=== PATIENT | female | born 1930 | race Caucasian/White ===

== ENCOUNTER 2017-07-29 10:20 | Day surgery (SDC) | payer MEDICARE, OTHER ==
[~2017-07-29 10:20] MED LIST: ACETAMINOPHEN 325 MG TAB PO; MIDAZOLAM INJ 2 MG/2 ML VIAL (J2250) As Ordered; PHENYLEPHRINE HCL 10 % OPHTH. SOL 5ML OD; fentaNYL 100 MCG/2 ML INJECTION (J3010) As Ordered
[2017-07-29] MEDS ORDERED: LIDOCAINE 1% MDV 20ML VIAL SQ (10:30)
[2017-07-29] MEDS: PHENYLEPHRINE 2.5% OPHTH SOL 2ML OD (11:54)
[2017-07-29] MEDS: TROPICAMIDE 1% OPHTH SOLN 2ML OD (11:54)
[2017-07-29] MEDS: OFLOXACIN 0.3 % (OCUFLOX) OPTH SOL 5ML OD (11:54)
[2017-07-29] MEDS: LIDOCAINE 3.5 % 1ML OPHTH TOPICAL GEL OU (11:54)
[2017-07-29] MEDS: CYCLOPENTOLATE 2% OPHTH SOLN 2ML BTL OD (11:55)
[2017-07-29] MEDS: POVIDONE-IODINE 5% OPHTH PREP SOL 30ML As Ordered (13:34)
[2017-07-29] MEDS: MOXIFLOXACIN IN BSS 0.25MG/0.25ML INTRACAMERAL INJ (OR EYE ONLY)(J2280) As Ordered (13:40)
[2017-07-29] MEDS: HEALON DUET (HEALON 10MG/ML 0.55ML & HEALON ENDOCOAT 30MG/ML 0.85ML) As Ordered (13:40)
[2017-07-29] MEDS: LIDOCAINE 1% SDV 5 ML VIAL As Ordered (13:40)
[2017-07-29] MEDS: TRIAMCINOLONE PRES FR 40 MG/ML 1ML(TRIESENCE)(OR EYE ONLY)(J3300 PER 1MG) As Ordered (13:40)
[2017-07-29] MEDS: BSS with VANC/TOB/EPI for EYE CASES IR (13:40)
[2017-07-29] MEDS ORDERED: TRIMETHOBENZAMIDE 300 MG CAP PO (14:00)
[2017-07-29] MEDS: AcetaZOLAMIDE 500 MG ER CAP PO (14:30)
== END 2017-07-29 14:42 | disposition home or self-care (01) ==
LOC: M SDC 10:20
DX: H26.9 Unspecified cataract (principal); I10 Essential (primary) hypertension; E78.5 Hyperlipidemia, unspecified; E55.9 Vitamin D deficiency, unspecified; E53.8 Deficiency of other specified B group vitamins; J30.89 Other allergic rhinitis; M17.0 Bilateral primary osteoarthritis of knee; Z85.3 Personal history of malignant neoplasm of breast; Z90.11 Acquired absence of right breast and nipple; Z91.018 Allergy to other foods; Z88.5 Allergy status to narcotic agent; Z88.1 Allergy status to other antibiotic agents; Z79.899 Other long term (current) drug therapy
CPT/HCPCS: 66984